=== PATIENT | male | born 1955 | race Caucasian/White ===

== ENCOUNTER 2021-02-06 20:58 | Emergency (ER) | payer MEDICARE ==
[~2021-02-06 20:58] MED LIST: AMIODARONE 150 MG/3 ML VIAL ONE; CALCIUM CHLORIDE 1,000 MG/10 ML DISP.SYRIN ONE; EPINEPHrine SYRINGE 1 MG/10 ML SYRINGE ONE; SODIUM BICARB ADULT 8.4% 50 MEQ/50 ML DISP.SYRIN. ONE
--- NOTE | 2021-02-06 21:44 | PHYS DOC ---
Past Medical History Past Medical History: CAD General Adult EDM: Chief Complaint: CPR/FULL ARREST HPI: HPI: Patient is a 65 year old male who presents with EMS in cardiac arrest. Little known past medical history, but is known to have coronary artery disease with multiple stents. Witnessed arrest with approximately 10 minutes of downtime and bystander CPR at home. Was watching a football game when he arrested. On EMS arrival, initial rhythm V. fib. Defibrillated x4 with transition to asystole then PEA. Received multiple doses of epinephrine and 1 dose of lidocaine prior to ED arrival. I gel was placed for airway management and he was ventilated with rescue breathing. Review of Systems: Review of Systems: Not obtainable due to cardiac arrest Heart Score: C/O Chest Pain: N/A Physical Exam: PE: Constitutional: Unresponsive, iGel supraglottic airway in place HENT: Normocephalic, atraumatic, Eyes: Pupils 4 mm bilaterally Cardiovascular: CPR in progress, good pulses only with compression Lungs & Thorax: Bilateral breath sounds present Abdomen: Nondistended Skin: Warm, dry Back: No tenderness, no CVA tenderness. [] Extremities: No significant edema Neurologic: GCS 3, no movement EKG: EKG: [] Radiology/Procedures: Radiology/Procedures: Indication: Cardiac arrest Consent: Unable to give consent due to emergent nature. Medications Used: see nursing note Procedure: The patient was placed in the appropriate position. Intubation was performed without sedation. 7.5 endotracheal tube. Secured at 22 cm at the teeth. Initial confirmation of placement included bilateral breath sounds, tube fogging, adequate chest rise, adequate pulse oximetry reading. The patient tolerated the procedure well. Complications: none.[] Course & Med Decision Making: Course & Med Decision Making Pertinent Labs and Imaging studies reviewed. (See chart for details) Patient is 65-year-old male with known history of coronary artery disease with multiple stents who presents with out of hospital ventricular fibrillation cardiac arrest. See HPI for out of hospital details. Intubated as above at 2101. Rhythm here has was agonal PEA despite multiple doses of bicarb, calcium, and epinephrine. High-quality CPR was maintained with end-tidal CO2's in the 40-50s. Precipitous drop of ET CO2 with pulse checks. One episode of what appeared to be fine ventricular fibrillation versus asystole was defibrillated. Next pulse checks revealed return to agonal PEA. Bilateral breath sounds were heard throughout. Blood sugar was 208. [id number] ultrasound revealed cardiac standstill and no pericardial effusion. In total 54 minutes of CPR (prehospital and in hospital were performed) without ROSC. Resuscitation efforts were terminated at 2113, and was pronounced. I updated family in person, all questions answered. Family viewed patient at bedside. 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 Dragon Disclaimer: Dragon Disclaimer: This electronic medical record was generated, in whole or in part, using a voice recognition dictation system. Departure Departure Impression: Primary Impression: Ventricular fibrillation Additional Impression: Cardiac arrest Disposition: 20 Condition: EJ MUSTAFA MD Feb 06, 2021 21:44
== END 2021-02-06 23:55 ==
LOC: ER 20:58
DX: I46.9 Cardiac arrest, cause unspecified (principal); I49.01 Ventricular fibrillation; I25.10 Atherosclerotic heart disease of native coronary artery without angina pectoris
CPT/HCPCS: 31500; 92950; 94760; 99285; J0171; J0282; J3490